=== PATIENT | male | born 1970 | race Hispanic/Latino ===

== ENCOUNTER 2017-03-18 16:04 | Emergency (ER) | payer OTHER ==
--- OUTSIDE RECORDS SUMMARY | 2017-03-18 16:07 | XMS REPORT ---
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 Unspecified visual disturbance Strain of patellar tendon of left leg 844.8 Active 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 Sprain of other specified sites of knee and leg PANIC DISORDER Active Nola Justice MD Panic disorder without agoraphobia PTSD Active Nola Justice MD Posttraumatic stress disorder SCHIZOAFFECTIVE DISORDER, DEPRESSIVE TYPE, MULT EPIS, CURR ACUTE EPIS 07/28 Active Nola Justice MD Schizoaffective disorder, unspecified Hyperlipidemia 272.4 Active Kwame Orozco MD Other and unspecified hyperlipidemia Prediabetes 790.29 Active Kwame Orozco MD Other abnormal glucose Annual exam V72.31 Active Kwame Orozco MD Routine gynecological examination Asthma 493.90 Active Kwame Orozco MD Asthma, unspecified Gastroesophageal reflux 530.81 Active Kwame Orozco MD Esophageal reflux Hypertension Active Kwame Orozco MD Mood disorder 296.90 Active Kwame Orozco MD Unspecified episodic mood disorder Obesity 278.00 Active Kwame Orozco MD Obesity, unspecified Gross hematuria ICD-599.71 Inactive Nahun Stanley MD Gross hematuria 599.71 Resolved Nahun Stnaley MD Gross hematuria Medication List Medication Instructions Start Date Stop Date Generic Name NDC Status Provider Patient Instruction ATORVASTATIN CALCIUM 20 MG ORAL TABLET take one tab by mouth daily ATORVASTATIN CALCIUM 43350242170 Active Nahun Stanley MD Active ABILIFY 10 MG ORAL TABLET take one half a tablet in the morning ARIPIPRAZOLE 37335429931 Active Zackery Lam MD Active NAPROXEN 500 MG ORAL TABLET 1 tab by mouth twice a day as needed for pain and inflammation NAPROXEN 79259418661 Active 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 TRAZODONE HCL 86784700861 Active Zackery Lam MD Active PANTOPRAZOLE SODIUM 40 MG ORAL TABLET DELAYED RELEASE 1 By Mouth once a day PANTOPRAZOLE SODIUM 45753019466 Active Kwame Orozco MD Active PROVENTIL HFA 108 (90 Base) MCG/ACT INHALATION AEROSOL SOLUTION 2 puffs every 4 hours as needed for wheezing ALBUTEROL SULFATE 99809363042 Active Kwame Orozco MD Active LISINOPRIL 10 MG ORAL TABLET 1 By Mouth once a day LISINOPRIL 35401421628 Active Kwame Orozco MD Active CLONAZEPAM 1 MG ORAL TABLET 1 By Mouth Twice a Day CLONAZEPAM 79810313116 Active Zackery Lam MD Active PAROXETINE HCL 30 MG ORAL TABLET one and a half tablets By Mouth Every Day PAROXETINE HCL 12410743841 Active Zackery Lam MD Active RISPERIDONE 0.5 MG ORAL TABLET one By Mouth Twice a Day RISPERIDONE 0.5 MG ORAL TABLET 194402 RISPERIDONE Inactive QUETIAPINE FUMARATE 50 MG ORAL TABLET 1 By Mouth at bedtime 07/28 QUETIAPINE FUMARATE 50 MG ORAL TABLET 929768 QUETIAPINE FUMARATE Inactive RISPERIDONE 0.5 MG ORAL TABLET one By Mouth Twice a Day RISPERIDONE 46872892612 No Longer Active Nola Justice MD Active QUETIAPINE FUMARATE 50 MG ORAL TABLET 1 By Mouth at bedtime 07/28 QUETIAPINE FUMARATE 99614469543 No Longer Active Nola Justice MD Active Advance Directives Directive Description Start Date DISCUSSED - NO DECISION MADE Vital Signs Date Name Value Unit Range Description blood pressure, diastolic 90 mm[Hg] BP hartman blood pressure, systolic 145 mm[Hg] BP sys height E&M 65 [in_us] Bdy height pulse rate E&M 107 /min Heart rate weight E&M 235 [lb_av] Weight Measured blood pressure, diastolic 86 mm[Hg] BP hartman blood pressure, systolic 129 mm[Hg] BP sys height E&M 65 [in_us] Bdy height pulse rate E&M 72 /min Heart rate weight E&M 234 [lb_av] Weight Measured blood pressure, diastolic 86 mm[Hg] BP hartman blood pressure, systolic 138 mm[Hg] BP sys height E&M 65 [in_us] Bdy height pulse rate E&M 87 /min Heart rate weight E&M 234.80 [lb_av] Weight Measured blood pressure, diastolic 80 mm[Hg] BP hartman blood pressure, systolic 123 mm[Hg] BP sys height E&M 65 [in_us] Bdy height pulse rate E&M 102 /min Heart rate weight E&M 235 [lb_av] Weight Measured blood pressure, diastolic 80 mm[Hg] BP hartman blood pressure, systolic 119 mm[Hg] BP sys height E&M 65 [in_us] Bdy height pulse rate E&M 81 /min Heart rate respiratory rate E&M 18 /min Resp rate temperature E&M 98.7 [degF] Body temperature weight E&M 232.20 [lb_av] Weight Measured blood pressure, diastolic 86 mm[Hg] BP hartman blood pressure, systolic 135 mm[Hg] BP sys height E&M 65 [in_us] Bdy height pulse rate E&M 105 /min Heart rate respiratory rate E&M 18 /min Resp rate temperature E&M 98.6 [degF] Body temperature weight E&M 233 [lb_av] Weight Measured blood pressure, diastolic 79 mm[Hg] BP hartman blood pressure, systolic 118 mm[Hg] BP sys height E&M 65 [in_us] Bdy height pulse rate E&M 98 /min Heart rate weight E&M 241.40 [lb_av] Weight Measured blood pressure, diastolic 80 mm[Hg] BP hartman blood pressure, systolic 118 mm[Hg] BP sys height E&M 65 [in_us] Bdy height pulse rate E&M 113 /min Heart rate temperature E&M 96.1 [degF] Body temperature weight E&M 235 [lb_av] Weight Measured blood pressure, diastolic 83 mm[Hg] BP hartman blood pressure, systolic 121 mm[Hg] BP sys height E&M 65 [in_us] Bdy height pulse rate E&M 77 /min Heart rate weight E&M 238.20 [lb_av] Weight Measured blood pressure, diastolic 92 mm[Hg] BP hartman blood pressure, systolic 144 mm[Hg] BP sys height E&M 65 [in_us] Bdy height pulse rate E&M 96 /min Heart rate weight E&M 236.60 [lb_av] Weight Measured blood pressure, diastolic 86 mm[Hg] BP hartman blood pressure, systolic 124 mm[Hg] BP sys height E&M 65 [in_us] Bdy height pulse rate E&M 80 /min Heart rate temperature E&M 97.8 [degF] Body temperature weight E&M 237 [lb_av] Weight Measured Diagnostic Results Date Name Value Unit Range Description Lab Report: Comp. Metabolic Panel (14), Lipid Panel, Hemoglobin A1c, TSH ... - Chemistry calcium, serum 9.6 mg/dL 8.7-10.2 urea nitrogen, blood 9 mg/dL 6-24 urea nitrogen/creatinine ratio, serum 11 9-20 Lab Report: Comp. Metabolic Panel (14), Lipid Panel, Hemoglobin A1c, TSH ... - Genetics/fertility eGFR if 125 mL/min/1.73m2 >59 Lab Report: Comp. Metabolic Panel (14), Lipid Panel, Hemoglobin A1c, TSH ... - Chemistry creatinine, serum 0.81 mg/dL 0.76-1.27 chloride, serum 97 mmol/L 96-106 triglyceride, serum, fasting 224 mg/dL 0-149 Estimated Glomerular Filtration Rate (calc) 108 mL/min/1.73m2 > 59 carbon dioxide, venous blood 22 mmol/L 18-29 protein, total, serum 7.7 g/dL 6.0-8.5 HDL cholesterol, serum 47 mg/dL >39 sodium, serum 138 mmol/L 852-288 8465/06/07 hemoglobin A1C, blood, as % of total hemoglobin 5.7 % 4.8-5.6 albumin/globulin ratio, serum 1.8 1.2-2.2 alkaline phosphatase, serum 76 U/L 39-117 alanine aminotransferase (SGPT), serum 45 U/L 0-44 LDL cholesterol, serum 156 mg/dL 0-99 cholesterol, serum 248 mg/dL 826-664 2096/06/07 bilirubin, serum, total 0.4 mg/dL 0.0-1.2 potassium, serum 4.6 mmol/L 3.5-5.2 blood glucose, random 90 mg/dL 65-99 globulin, serum 2.8 1.5-4.5 aspartate aminotransferase (SGOT), serum 27 U/L 0-40 thyroid stimulating hormone, serum 1.610 u[iU]/mL 0.450-4.500 albumin, serum 4.9 g/dL 3.5-5.5 very low density lipoproteins 45 mg/dL 5-40 Encounters Date Encounter Provider Code Facility 15:53:33 HVAC ESTIMATOR Est Patient Exp Problem - 21370 Zackery Lam MD CPT -61793 [facility] 09:45:31 HVAC ESTIMATOR Est Patient Detailed - 89192 Zackery Lam MD CPT- 42102 [facility] 13:51:09 HVAC ESTIMATOR Est Patient Detailed - 31500 Nola Justice MD CPT- 81991 [facility] 16:26:36 CDT Est Patient Detailed - 49728 Nola Justice MD CPT- 50384 [facility] 16:48:47 CDT Est Patient Exp Problem - 81748 Nahun Stanley MD CPT-02477 [facility] 16:49:12 CDT Est Patient Exp Problem - 14126 Nahun Stanley MD CPT-51960 [facility] 12:36:47 CDT Est Patient Detailed - 92118 Nola Justice MD CPT- 42204 [facility] 16:09:53 CDT New Patient Exp Problem - 40671 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
== END 2017-03-18 18:24 | disposition home or self-care (01) ==
LOC: ER 16:04
DX: K02.9 Dental caries, unspecified (principal)
CPT/HCPCS: 99281

== ENCOUNTER 2018-03-03 19:00 | Emergency (ER) | payer OTHER ==
[~2018-03-03] VITALS: Ht 165.1 cm; Wt 107.0 kg
--- OUTSIDE RECORDS SUMMARY | 2018-03-03 19:02 | XMS REPORT ---
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 Unspecified visual disturbance Strain of patellar tendon of left leg 844.8 Active 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 Sprain of other specified sites of knee and leg PANIC DISORDER Active Nola Justice MD Panic disorder without agoraphobia PTSD Active Nola Justice MD Posttraumatic stress disorder SCHIZOAFFECTIVE DISORDER, DEPRESSIVE TYPE, MULT EPIS, CURR ACUTE EPIS Active Nola Justice MD Schizoaffective disorder, unspecified [...] Stanley MD Gross hematuria 599.71 Resolved Nahun Stanley MD Gross hematuria Medication List Medication Instructions Start Date Stop Date Generic Name NDC Status Provider Patient Instruction PROAIR HFA 108 (90 BASE) MCG/ACT INHALATION AEROSOL SOLUTION 2 puffs every 4 - 6 hours as needed ALBUTEROL SULFATE 98196982799 Active Nahun Stanley MD Active PAROXETINE HCL 30 MG TABLET TAKE ONE AND A HALF TABLETS BY MOUTH EVERY DAY PAROXETINE HCL 62988300608 Active Zackery Lam MD Active TRAZODONE 100 MG TABLET TAKE ONE AND A HALF TABLETS BY MOUTH AT BEDTIME . 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 PANTOPRAZOLE SODIUM 40 MG ORAL TABLET DELAYED RELEASE 1 By Mouth once a day PANTOPRAZOLE SODIUM 63322462996 Active Kwame Orozco MD Active PROVENTIL HFA 108 (90 Base) MCG/ACT INHALATION AEROSOL SOLUTION 2 puffs every 4 hours as needed for wheezing ALBUTEROL SULFATE 36328096653 Active Nahun Stanley MD Active LISINOPRIL 20 MG ORAL TABLET 1 by mouth every day LISINOPRIL 22406443912 Active Nahun Stanley MD Active CLONAZEPAM 1 MG ORAL TABLET 1 By Mouth Twice a Day CLONAZEPAM 60186981462 Active Zackery Lam MD Active RISPERIDONE 0.5 MG ORAL TABLET one By Mouth Twice a Day RISPERIDONE 0.5 MG ORAL TABLET 189535 RISPERIDONE Inactive QUETIAPINE FUMARATE 50 MG ORAL TABLET 1 By Mouth at bedtime QUETIAPINE FUMARATE 50 MG ORAL TABLET 001412 QUETIAPINE FUMARATE Inactive RISPERIDONE 0.5 MG ORAL TABLET one By Mouth Twice a Day RISPERIDONE 78506632328 No Longer Active Nola Justice MD Active QUETIAPINE FUMARATE 50 MG ORAL TABLET 1 By Mouth at bedtime QUETIAPINE FUMARATE 47803498105 No Longer Active Nola Justice MD Active Advance Directives Directive Description Start Date DISCUSSED - NO DECISION MADE Vital Signs Date Name Value Unit Range Description blood pressure, diastolic 87 mm[Hg] BP hartman blood pressure, systolic 131 mm[Hg] BP sys height E&M 65 [in_us] Bdy height pulse rate E&M 84 /min Heart rate weight E&M 236.25 [lb_av] Weight Measured blood pressure, diastolic 86 mm[Hg] BP hartman blood pressure, systolic 127 mm[Hg] BP sys height E&M 65 [in_us] Bdy height pulse rate E&M 99 /min Heart rate respiratory rate E&M 18 /min Resp rate temperature E&M 98.0 [degF] Body temperature weight E&M 234.38 [lb_av] Weight Measured blood pressure, diastolic 98 mm[Hg] BP hartman blood pressure, systolic 160 mm[Hg] BP sys height E&M 65 [in_us] Bdy height pulse rate E&M 107 /min Heart rate weight E&M 233.25 [lb_av] Weight Measured blood pressure, diastolic 84 mm[Hg] BP hartman blood pressure, systolic 120 mm[Hg] BP sys height E&M 65 [in_us] Bdy height pulse rate E&M 90 /min Heart rate weight E&M 233.80 [lb_av] Weight Measured blood pressure, diastolic 84 mm[Hg] BP hartman blood pressure, systolic 131 mm[Hg] BP sys height E&M 65 [in_us] Bdy height pulse rate E&M 80 /min Heart rate weight E&M 236 [lb_av] Weight Measured blood pressure, diastolic 91 mm[Hg] BP hartman blood pressure, systolic 135 mm[Hg] BP sys height E&M 65 [in_us] Bdy height pulse rate E&M 99 /min Heart rate respiratory rate E&M 18 /min Resp rate temperature E&M 97.5 [degF] Body temperature weight E&M 242.60 [lb_av] Weight Measured blood pressure, diastolic 86 mm[Hg] BP hartman blood pressure, systolic 126 mm[Hg] BP sys height E&M 65 [in_us] Bdy height pulse rate E&M 88 /min Heart rate respiratory rate E&M 20 /min Resp rate temperature E&M 98.1 [degF] Body temperature weight E&M 239.40 [lb_av] Weight Measured blood pressure, diastolic 107 mm[Hg] BP hartman blood pressure, systolic 167 mm[Hg] BP sys height E&M 65 [in_us] Bdy height pulse rate E&M 88 /min Heart rate weight E&M 240.20 [lb_av] Weight Measured Diagnostic Results Date Name Value Unit Range Description Lab Report: CBC With Differential/Platelet, Comp. Metabolic Panel (14), ... - Hematology hematocrit, blood 43.4 % 37.5-51.0 Lab Report: CBC With Differential/Platelet, Comp. Metabolic Panel (14), ... - Chemistry sodium, serum 136 mmol/L 134-144 Lab Report: Comp. Metabolic Panel (14), Lipid Panel, Hemoglobin A1c, TSH ... - Chemistry thyroid stimulating hormone, serum 1.610 u[iU]/mL 0.450-4.500 Lab Report: CBC With Differential/Platelet, Comp. Metabolic Panel (14), ... - Hematology neutrophils as percent of blood leukocytes 54 % Not Estab. basophils as percent of blood leukocytes 1 % Not Estab. Lab Report: CBC With Differential/Platelet, Comp. Metabolic Panel (14), ... - Chemistry very low density lipoproteins 39 mg/dL 5-40 carbon dioxide, venous blood 22 mmol/L 18-29 chloride, serum 96 mmol/L 96-106 triglyceride, serum, fasting 196 mg/dL 0-149 calcium, serum 9.6 mg/dL 8.7-10.2 urea nitrogen, blood 11 mg/dL 6-24 alanine aminotransferase (SGPT), serum 36 U/L 0-44 Lab Report: CBC With Differential/Platelet, Comp. Metabolic Panel (14), ... - Hematology mean corpuscular hemoglobin, RBC 30.2 pg 26.6-33.0 mean corpuscular hemoglobin concentration, RBC 34.3 G/DL % 31.5-35.7 Lab Report: CBC With Differential/Platelet, Comp. Metabolic Panel (14), ... - Chemistry protein, total, serum 7.1 g/dL 6.0-8.5 alkaline phosphatase, serum 70 U/L 39-117 Lab Report: CBC With Differential/Platelet, Comp. Metabolic Panel (14), ... - Hematology erythrocyte (RBC) count 4.93 X10E6/UL 10*6/mm3 4.14-5.80 hemoglobin, blood 14.9 g/dL 13.0-17.7 Lab Report: CBC With Differential/Platelet, Comp. Metabolic Panel (14), ... - Chemistry Absolute Neutrophils 2.9 X10E3/UL 10*3/uL 1.4-7.0 LDL cholesterol, serum 155 mg/dL 0-99 urea nitrogen/creatinine ratio, serum 13 9-20 Lab Report: CBC With Differential/Platelet, Comp. Metabolic Panel (14), ... - Hematology lymphocytes as percent of blood leukocytes 33 % Not Estab. Lab Report: CBC With Differential/Platelet, Comp. Metabolic Panel (14), ... - Chemistry hemoglobin A1C, blood, as % of total hemoglobin 5.8 % 4.8-5.6 Lab Report: CBC With Differential/Platelet, Comp. Metabolic Panel (14), ... - Hematology mean corpuscular volume, RBC 88 fL 79-97 Lab Report: CBC With Differential/Platelet, Comp. Metabolic Panel (14), ... - Chemistry HDL cholesterol, serum 44 mg/dL >39 Lab Report: CBC With Differential/Platelet, Comp. Metabolic Panel (14), ... - Genetics/fertility eGFR if 122 mL/min/1.73m2 >59 Lab Report: CBC With Differential/Platelet, Comp. Metabolic Panel (14), ... - Hematology basophil count, absolute 0.0 x10E3/uL 0.0-0.2 monocytes as percent of blood leukocytes 8 % Not Estab. Lab Report: CBC With Differential/Platelet, Comp. Metabolic Panel (14), ... - Chemistry globulin, serum 2.7 1.5-4.5 albumin/globulin ratio, serum 1.6 1.2-2.2 Estimated Glomerular Filtration Rate (calc) 105 mL/min/1.73m2 >59 creatinine, serum 0.86 mg/dL 0.76-1.27 cholesterol, serum 238 mg/dL 063-615 0331/03/23 bilirubin, serum, total 0.2 mg/dL 0.0-1.2 Lab Report: CBC With Differential/Platelet, Comp. Metabolic Panel (14), ... - Hematology Eosinophil Absolute Count 0.2 X10E3/UL 10*3/uL 0.0-0.4 eosinophils as percent of blood leukocytes 4 % Not Estab. Lab Report: CBC With Differential/Platelet, Comp. Metabolic Panel (14), ... - Chemistry blood glucose, random 103 mg/dL 65-99 aspartate aminotransferase (SGOT), serum 25 U/L 0-40 Lab Report: CBC With Differential/Platelet, Comp. Metabolic Panel (14), ... - Hematology red blood cell distribution width 13.2 % 12.3-15.4 leukocyte count, blood 5.3 X10E3/UL 10*3/mm3 3.4-10.8 Lab Report: CBC With Differential/Platelet, Comp. Metabolic Panel (14), ... - Chemistry potassium, serum 4.4 mmol/L 3.5-5.2 Lab Report: CBC With Differential/Platelet, Comp. Metabolic Panel (14), ... - Hematology monocyte count, blood, automated 0.4 X10E3/UL 10*3/uL 0.1-0.9 Lab Report: CBC With Differential/Platelet, Comp. Metabolic Panel (14), ... - Chemistry albumin, serum 4.4 g/dL 3.5-5.5 immature granulocytes, percentage of total cells, blood 0 % Not Estab. Lab Report: CBC With Differential/Platelet, Comp. Metabolic Panel (14), ... 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 Est Patient Exp Problem - 29512 Zackery Lam MD CPT-22054 [facility] 14:13:01 CONSTRUCTION EQUIPMENT MECHANIC Est Patient Exp Problem - 18517 Nahun Stanley MD CPT-68484 [facility] 14:07:40 CDT Est Patient Exp Problem - 97106 Zackery Lam MD CPT-05407 [facility] 15:53:50 CDT Est Patient Exp Problem - 01510 Zackery Lam MD CPT-74131 [facility] 12:56:45 CDT Est Patient Detailed - 47738 Zackery Lam MD CPT-02287 [facility] 10:40:44 CDT Est Patient Exp Problem - 17763 Nahun Stanley MD CPT-57234 [facility] 16:38:41 CDT Est Patient Exp Problem - 64711 Nahun Stanley MD CPT-34166 [facility] 15:40:27 CONSTRUCTION EQUIPMENT MECHANIC Est Patient Detailed - 79641 Zackery Lam MD CPT-47474 [facility] 15:53:33 CONSTRUCTION EQUIPMENT MECHANIC Est Patient Exp Problem - 93641 Zackery Lam MD CPT-43044 [facility] 09:45:31 CONSTRUCTION EQUIPMENT MECHANIC Est Patient Detailed - 12910 Zackery Lam MD CPT-53378 [facility] 13:51:09 CONSTRUCTION EQUIPMENT MECHANIC Est Patient Detailed - 67651 Nola Justice MD CPT-09151 [facility] 16:26:36 CDT Est Patient Detailed - 47883 Nola Justice MD CPT-44760 [facility] 16:48:47 CDT Est Patient Exp Problem - 19887 Nahun Stanley MD CPT-74799 [facility] 16:49:12 CDT Est Patient Exp Problem - 92113 Nahun Stanley MD CPT-56030 [facility] 12:36:47 CDT Est Patient Detailed - 58436 Nola Justice MD CPT-53449 [facility] 16:09:53 CDT New Patient Exp Problem - 25845 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
[2018-03-03] MEDS ORDERED: HYDROCODONE/APAP 10MG-325MG TAB ONE (19:43)
[2018-03-03] MEDS ORDERED: HYDROCODONE/APAP 10MG-325MG TAB PO ONE (20:00)
--- NOTE | 2018-03-03 20:12 | Diagnostic Imaging Report ---
HAND 3+ VIEWS LEFT HISTORY: Drill through the left index finger.. COMPARISON: None available. FINDINGS: Bones: No acute displaced fracture. Osseous alignment is within normal limits. Joints: The joint spaces are well-maintained. Soft tissues: Bandage overlying the index finger. No radiopaque foreign bodies. IMPRESSION: No acute bony abnormality. Signed by: DR. Mingo Agrawal MD on 03/03/2018 8:08 PM
== END 2018-03-03 21:15 | disposition home or self-care (01) ==
LOC: ER 19:00
DX: S61.231A Puncture wound without foreign body of left index finger without damage to nail, initial encounter (principal); W29.8XXA Contact with other powered hand tools and household machinery, initial encounter; Y92.008 Other place in unspecified non-institutional (private) residence as the place of occurrence of the external cause; I10 Essential (primary) hypertension; E78.5 Hyperlipidemia, unspecified; F20.9 Schizophrenia, unspecified
CPT/HCPCS: 99282